=== PATIENT | female | born 1985 | race Caucasian/White ===

== ENCOUNTER 2019-11-24 04:38 | Emergency (ER) | payer MEDICARE, MEDICAID ==
[~2019-11-24] VITALS: Ht 162.6 cm; Wt 66.0 kg
[2019-11-24 04:40] VITALS: BP 146/104
--- NOTE | 2019-11-24 05:15 | NUR ---
PT TO XRAY
== END 2019-11-24 06:16 | disposition home or self-care (01) ==
LOC: ED 05:51
DX: J06.9 Acute upper respiratory infection, unspecified (principal); Z90.49 Acquired absence of other specified parts of digestive tract; Z88.1 Allergy status to other antibiotic agents
CPT/HCPCS: 71046; 99283